=== PATIENT | male | born 1975 | race Caucasian/White ===

== ENCOUNTER 2020-02-24 18:08 | Emergency (ER) | payer SELFPAY ==
[~2020-02-24] VITALS: Ht 175.3 cm; Wt 108.9 kg
[2020-02-24] MEDS ORDERED: HYDROMORPHONE 1 MG/1 ML DISP.SYRIN ONE ×2 (18:35→20:05)
[2020-02-24] MEDS ORDERED: ONDANSETRON 4 MG TAB.RAPDIS ONE (18:35)
[2020-02-24] MEDS: HYDROMORPHONE 1 MG/1 ML DISP.SYRIN IM ONE (18:39)
[2020-02-24] MEDS: ONDANSETRON 4 MG TAB.RAPDIS PO ONE (18:40)
--- NOTE | 2020-02-24 18:56 | NUR ---
Patient awake alert medication given . Patient for radiology .
[2020-02-24] MEDS: HYDROMORPHONE 1 MG/1 ML DISP.SYRIN IV ONE (20:07)
--- NOTE | 2020-02-24 20:17 | NUR ---
Patient discharged to home in stable condition. Written and verbal after care instructions given. Patient verbalizes understanding of instruction.pt. ambulatory with a steady gait
[2020-02-24 20:18] VITALS: BP 151/64
== END 2020-02-24 20:19 | disposition home or self-care (01) ==
LOC: ER 18:08
DX: M54.2 Cervicalgia (principal); M54.5 Low back pain; M25.511 Pain in right shoulder; M79.661 Pain in right lower leg; G89.29 Other chronic pain; V49.49XA Driver injured in collision with other motor vehicles in traffic accident, initial encounter; Y93.89 Activity, other specified; Y92.488 Other paved roadways as the place of occurrence of the external cause; Y99.8 Other external cause status
CPT/HCPCS: 72125; 72128; 72131; 73030; 73590; 96372; 96374; 99285; J1170 ×2; Q0162